=== PATIENT | female | born 1995 | race Caucasian/White ===

== ENCOUNTER 2020-12-19 09:33 | Outpatient (REF) | payer MEDICAID, SELFPAY ==
[2020-12-19 13:34] LABS: ALT 17 U/L (14-59); AST 10 U/L (15-37); Albumin 3.4 g/dL (3.4-5.0); Alkaline Phosphatase 69 U/L (46-116); Anion Gap 12.4 mmol/L (3-11); BUN 15 mg/dL (7-18); Bilirubin, Total 0.1 mg/dL (0.2-1.0); CO2 21.6 mmol/L (21.0-32.0); CREATININE 0.7 mg/dL (0.55-1.02); Calcium 8.7 mg/dL (8.5-10.1); Calculated LDL 85 mg/dL (<100); Chloride 106 mmol/L (98-107); Cholesterol 161 mg/dL (<200); Glucose 96 mg/dL (74-106); HDL Cholesterol 36 mg/dL (40-60); Potassium 4.5 mmol/L (3.5-5.1); Sodium 140 mmol/L (136-145); Total Protein 7.1 g/dL (6.4-8.2); Triglyceride 204 mg/dL (<150); Vitamin B12 217 pg/mL (193-986)
== END 2020-12-19 09:34 | disposition home or self-care (01) ==
LOC: NCHCN 09:33
PROVIDERS: PCP Family Medicine; Visit Provider Nurse Practitioner Family
DX: F31.81 Bipolar II disorder (principal); Z79.899 Other long term (current) drug therapy; Z13.220 Encounter for screening for lipoid disorders; Z13.29 Encounter for screening for other suspected endocrine disorder; E66.9 Obesity, unspecified
CPT/HCPCS: 80053; 80061; 82607; 83735; 84443

== ENCOUNTER 2022-09-22 14:19 | Outpatient (REF) | payer MEDICAID, SELFPAY ==
--- NOTE | 2022-09-22 13:15 | PAPFT_PTH ---
PATIENT: Gemini Weathers LOC: [facility] U#:[id number] AGE/SX: 27/F ROOM: RE09/22/[address]: Cassie Dixon : 1995 BED: DIS: 09/22/2022 SPEC #: [id number] RECD: 09/23/22 13:04 STATUS: JANE REHaylee #: [id number] HERNESTO: 09/22/22 13:[address]: Cassie Cardoso DEPT: [facility] Cytology RECD BY: Tami Gilman ENTERED: 09/23/22 13:04 SP TYPE: PAPFT MARILU DR: Shira Colin Tissues: 1 - CX/ENDOCX FOR PAP SMEARS Procedures: PAP THIN PREP/[facility] Screening Comments: [id number]
[2022-09-22 21:40] LABS: HCT 38.8 % (36.0-46.0); HGB 12.8 g/dL (11.2-15.7); MCH 27.8 pg (27.0-33.0); MCV 84 fL (80-95); MPV 9.9 fL (8.0-11.0); Platelet Count 448 10^3/uL (130-400); RDW 14.6 % (11.7-14.6); RDW-SD 44.8 fL; WBC 10.06 10^3/uL (4.4-10.8)
[2022-09-22 21:53] LABS: ALT 16 U/L (14-59); AST 21 U/L (15-37); Albumin 3.5 g/dL (3.4-5.0); Alkaline Phosphatase 60 U/L (46-116); Anion Gap 9.8 mmol/L (3-11); BUN 12 mg/dL (7-18); Bilirubin, Total 0.1 mg/dL (0.2-1.0); CO2 22.2 mmol/L (21.0-32.0); CREATININE 0.8 mg/dL (0.55-1.02); Calcium 8.6 mg/dL (8.5-10.1); Calculated LDL 87 mg/dL (<100); Chloride 105 mmol/L (98-107); Cholesterol 154 mg/dL (<200); Glucose 87 mg/dL (74-106); HDL Cholesterol 43 mg/dL (40-60); Potassium 3.9 mmol/L (3.5-5.1); Sodium 137 mmol/L (136-145); Total Protein 7.5 g/dL (6.4-8.2); Triglyceride 122 mg/dL (<150)
[2022-09-22 21:54] LABS: Hemoglobin A1C 5.6 % (<5.7)
[2022-09-22 22:13] LABS: TSH 1.53 uIU/mL (0.36-3.74)
== END 2022-09-22 14:20 | disposition home or self-care (01) ==
LOC: NCHCN 14:19
PROVIDERS: PCP Family Medicine; Visit Provider Nurse Practitioner Family
DX: E78.5 Hyperlipidemia, unspecified (principal); K21.9 Gastro-esophageal reflux disease without esophagitis; N94.19 Other specified dyspareunia; E66.8 Other obesity; Z12.4 Encounter for screening for malignant neoplasm of cervix; Z13.1 Encounter for screening for diabetes mellitus
CPT/HCPCS: 80053; 80061; 85027; 88142; 83036; 84443